=== PATIENT | female | born 1995 | race Caucasian/White ===

== ENCOUNTER 2017-02-09 16:17 | Emergency (ER) | payer BC ==
--- NOTE | 2017-02-09 16:35 | ED Physician Documentation ---
Fall - HISTORIAN Historian: patient, friend - [facility] Chief Complaint: Hand Injury Onset: just prior to arrival (distal phalynx rt ring fingerdisplaced after pit bull dog yankedon leash and pt fell), other Context: lost balance r: mild, moderate Associated Symptoms:: no loss of consciousness Location of Pain/Injury: denies: head Injury to Right Extremity: hand Injury to Left Extremity: none - ROS CONST: no problems. denies: recent illness, fever, sweating, weakness NEURO: denies: anxiety MS/SKIN/LYMPH: denies: weakness, numbness EYES/ENT: denies: problems with vision CVS/RESP: none. denies: chest pain, shortness of breath - PAST HX Past History: none Allergies/Adverse Reactions: Allergies Allergy/AdvReac Type Severity Reaction Status Date / Time No Known Allergies Allergy Verified 02/09/17 16:31 - SOCIAL HX Smoking History: non-smoker Alcohol Use: rarely Drug Use: none - FAMILY HX Family History: no significant history - REVIEWED ASSESSMENTS Nursing Assessment Reviewed: Yes Vitals Reviewed: Yes ED Results Lab/Radiology - Radiology Radiology Impressions: fracture distal mid rt ring finger w/min lat displacement - Orders Orders: ED Orders Category Date Time Status FINGER 2 VIEWS OR MORE [RAD] Stat Exams 02/09/17 Ordered Fall Physical Exam - Physical Exam General Appearance: mild distress Head: non-tender Neck: non-tender Eye: MARCIA, EOMI Resp/CVS: chest non-tender, breath sounds nml, no resp. distress, heart sounds nml, other (lungs CTA) Abdomen: soft, non-tender Neuro: oriented x3, sensation nml, motor nml, mood/affect nml Skin: color nml, no rash. No: cyanosis, diaphoresis, pallor Extremities: other (only rt finger) - [place] Coma Score Eyes Open: Spontaneous Speech: Oriented Motor: Obeys Commands Discharge Clincal Impression: rt ring finger fracture Comments: pt agrees she will see orthopedics very soon-we placed splint on finger Condition: Good Disposition: 01 HOME, SELF-CARE Decision to Admit: NO Decision Time: 17:16
[2017-02-09 16:36] VITALS: BP 118/78
--- NOTE | 2017-02-09 18:41 | Diagnostic Imaging Report ---
MALIA RECINOS [facility] [id number] [facility] [address] [address] Report Submission Date: Feb 09, 2017 4:49:56 PM HOUSECLEANER Patient Study Name: TRICIA GARCIA Date: Feb 09, 2017 4:30:37 PM HOUSECLEANER Modality Type: CR Gender: F Description: UPPER EXTREMITY : 97 Institution: [facility] Physician: MALIA RECINOS HISTORY: 21-year-old female with right fourth finger pain after injury. COMPARISON: None available. TECHNIQUE: Three views of the right fourth finger were performed. FINDINGS: There is a displaced oblique fracture of the right fourth finger middle phalanx involving the head and neck, with intra-articular extension. There is mild shortening at the fracture site. There is mild flexion deformity of the DIP joint. No other fractures are identified about the right fourth finger. IMPRESSION: Right fourth finger middle phalanx displaced shortened oblique fracture involving the head and neck, with intra-articular extension. Electronically signed on Feb 09, 2017 4:49:56 PM HOUSECLEANER by: Cornell KOTHARI
== END 2017-02-09 17:15 | disposition home or self-care (01) ==
LOC: ED 16:17
DX: S62.634A Displaced fracture of distal phalanx of right ring finger, initial encounter for closed fracture (principal); X58.XXXA Exposure to other specified factors, initial encounter; Y93.89 Activity, other specified
CPT/HCPCS: 73140; 99282; 99283